=== PATIENT | female | born 1985 | race African-American/Black ===

== ENCOUNTER 2016-10-18 14:12 | Emergency (ER) | payer OTHER ==
--- NOTE | ~2016-10-18 | US106 ---
[facility] A Service of [facility] & [facility] RADIOLOGY TEXT RESULTS PATIENT: KOLTON DALY LOCATION: [place] : [birth year] UNIT #: [id number] AGE: [address]: Tato Sainz DO SEX: F ORDER DR: [id number] [facility] [address] [place], [place] [address] [id number] E MR#: [id number] Acc #: [id number] NAME: KOLTON DALY : 1985 SEX: F STUDY DATE/TIME: 10/18/2016 14:49 UNIT: [place] ROOM: STUDY DESCRIPTION: US Preg Uterus Transvaginal Attending Physician: Tato Sainz D.O. Ordering Physician: Tato Sainz D.O. Primary Care Physician: Farida Espinosa M.D. MEDICAL IMAGING REPORT This report is preliminary unless electronic signature is present EXAM Endovaginal pelvic ultrasound, 10/18/2016 HISTORY Right lower quadrant pelvic pain with heavy vaginal bleeding for 4 days, dizziness and chest pain. Quantitative beta hCG 981. FINDINGS The uterus measures 9.9 cm craniocaudal x 4.8 cm AP x approximately 5.0 cm transverse. The endometrial stripe measured 9.0 mm. No intrauterine gestational sac is identified. There is a moderate amount of complicated fluid within the pelvis with debris concerning for blood products. Just above the right ovary in the right adnexal region. There is a 2.3 cm x 1.8 cm x 2.7 cm indeterminate oval solid structure which could reflect ectopic . Clinical correlation is recommended. Findings were discussed with Dr. Sainz at 03:30 p.m. on 10/18/2016. The right ovary measured 3.4 cm x approximately 2.0 cm and contained a 1.7 cm cystic lesion probably representing a corpus luteum. The left ovary measured 3.1 cm x 1.5 cm. IMPRESSION No intrauterine gestational sac is seen. There is however a moderate amount of complicated fluid within the pelvis concerning for blood products. Additionally, there is a 2.7 cm oval echogenic structure located superior to the right ovary in the right adnexal region. I cannot exclude ruptured ectopic on the right side. Clinical correlation is strongly recommended. STAT * RESULT [facility] A Service of [facility] & [facility] RADIOLOGY TEXT RESULTS PATIENT: KOLTON DALY LOCATION: [facility] #: [id number] : [birth year] UNIT #: [id number] AGE: [address]: Taot Sainz DO SEX: F ORDER DR: Dictated by... Ian Monte M.D. THIS IS AN ELECTRONICALLY VERIFIED REPORT Ian Monte M.D. at 10/19/2016 2:18 PM JON/david TD: 10/18/2016 16:16 JOB #: [id number] MEDICAL IMAGING REPORT Page 1 of 1 COPY
[2016-10-18 13:43] LABS: BASOPHIL% 0.4 % (0-2.5); EOSINOPHIL# 0.1 X10e3 (0-0.7); EOSINOPHIL% 1.1 % (0.0-7.0); HEMATOCRIT 29.4 % (35.0-45.0); HEMOGLOBIN 9.7 gm/dL (12.0-16.0); LYMPHOCYTE# 1.6 X10e3 (1.0-3.5); LYMPHOCYTE% 24.9 % (17.0-45.0); MEAN CELL VOLUME 89.7 FL (83-96); MEAN CORPUSCULAR HEMOGLOBIN 29.7 PG (28-34); MEAN CORPUSCULAR HGB CONC 33.1 g/dL (30-36); MEAN PLATELET VOLUME 8.1 FL (6.5-11.5); MONOCYTE# 0.4 X10e3 (0-1.0); MONOCYTE% 6.3 % (3.0-12.0); NEUTROPHIL# 4.3 X10e3 (1.5-7.1); NEUTROPHIL% 67.3 % (40-75); PLATELET COUNT 256 X10e3 (140-420); RED BLOOD COUNT 3.28 X10e (3.90-5.30); WHITE BLOOD COUNT 6.4 X10e3 (4.0-10.5)
[2016-10-18 13:44] LABS: URINE SOURCE CLEAN CATCH
[2016-10-18 13:49] LABS: POC - CKMB <1.0 ng/mL (0.0-7.9); POC - TROPONIN <0.05 ng/mL (<=0.05)
[2016-10-18 13:49] LABS: DIFF IND NO
[2016-10-18 13:55] LABS: URINE APPEARANCE CLEAR; URINE BILIRUBIN NEG (NEG); URINE BLOOD 3+ (NEG); URINE COLOR ORANGE; URINE GLUCOSE NEG (NEG); URINE KETONE TRACE (NEG); URINE LEUKOCYTE ESTERASE TRACE (NEG); URINE NITRATE NEG (NEG); URINE PH 5.5 (5-8); URINE PROTEIN TRACE (NEG); URINE SPECIFIC GRAVITY 1.014 (1.003-1.035); URINE UROBILINOGEN 0.2 MG/DL (NEG)
[2016-10-18 13:56] LABS: CULTURE INDICATED? YES; URBCS1 AUWI INNUM /[HPF] (0-2); URINE BACTERIA AUWI NEG (NEGATIVE); URINE SQUAMOUS EPITHELIAL CELL OCC /[HPF]
[2016-10-18 14:10] LABS: PARTIAL THROMBOPLASTIN TIME 25.2 SECONDS (23.5-31.3)
[2016-10-18 14:11] LABS: ALBUMIN SERUM 4.3 g/dL (3.5-5.0); BILIRUBIN, DIRECT 0.1 mg/dL (0.0-0.2); BILIRUBIN,INDIRECT 0.5 mg/dL (0.0-0.9); BILIRUBIN,TOTAL 0.6 mg/dL (0.2-2.0); CALCIUM SERUM 8.8 mg/dL (8.4-10.2); CREATININE SERUM 0.6 mg/dL (0.6-1.4); GLOM FILT RATE Estimated 141.8 mL/min (>60); POTASSIUM 3.3 mmol/L (3.5-5.1)
[~2016-10-18 14:12] MED LIST: DOXYCYCLINE150 MG PO; FLEXERIL10 M1 PO; NAPROSYN500 MG PO
[2016-10-21 03:16] LABS: CHLAMYDIA TRACH Not Detected (Not Detected); N GONOR Not Detected (Not Detected)
== END 2016-10-18 16:56 | disposition short-term general hospital (02) ==
LOC: CED 14:12
PROVIDERS: Emergency Medicine
DX: O00.90 Unspecified ectopic pregnancy without intrauterine pregnancy (principal); F17.200 Nicotine dependence, unspecified, uncomplicated
CPT/HCPCS: 36415; 76817; 80048; 80076; 81003; 82553; 84484; 84702; 84703; 85025; 85610; 85730; 86850; 86900; 86901; 87086; 87491; 87591; 87808; 87905; 99285; J2270; J2405